=== PATIENT | male | born 1940 | race Caucasian/White ===

== ENCOUNTER 2021-08-25 00:36 | Emergency (ER) | payer BC, MEDICARE | END 2021-08-25 02:19 | disposition home or self-care (01) | LOC: JP.ED 00:36 | DX: R33.9 Retention of urine, unspecified (principal); R14.0 Abdominal distension (gaseous); R10.30 Lower abdominal pain, unspecified | CPT/HCPCS: 51702; 81001; 99282; 99283-25 ==

== ENCOUNTER 2021-10-05 19:29 | Emergency (ER) | payer MEDICARE ==
[2021-10-05 21:00] LABS: ESTIMATED GFR 68 mL/min (>60)
== END 2021-10-05 22:11 | disposition home or self-care (01) ==
LOC: JP.ED 19:29
DX: N39.0 Urinary tract infection, site not specified (principal); R31.9 Hematuria, unspecified; I48.91 Unspecified atrial fibrillation; E78.00 Pure hypercholesterolemia, unspecified; I10 Essential (primary) hypertension; E11.9 Type 2 diabetes mellitus without complications; Z86.16 Personal history of COVID-19; Z95.0 Presence of cardiac pacemaker; Z79.01 Long term (current) use of anticoagulants; Z79.899 Other long term (current) drug therapy; Z87.448 Personal history of other diseases of urinary system
CPT/HCPCS: 36415; 80053; 81001; 85027; 87086; 87088; 87186; 99283

== ENCOUNTER 2021-10-20 16:23 | Emergency (ER) | payer MEDICARE ==
[2021-10-20] MEDS ORDERED: Lidocaine 2% Jelly 10 ML Urojet MUCMEM ONE (19:32)
== END 2021-10-20 21:24 | disposition home or self-care (01) ==
LOC: JP.ED 16:23
DX: R31.9 Hematuria, unspecified (principal); I10 Essential (primary) hypertension; E78.00 Pure hypercholesterolemia, unspecified; E11.9 Type 2 diabetes mellitus without complications; E20.9 Hypoparathyroidism, unspecified; Z79.899 Other long term (current) drug therapy
CPT/HCPCS: 51702; 81001; 99284-25

== ENCOUNTER 2021-10-21 14:35 | Emergency (ER) | payer MEDICARE ==
[2021-10-21] MEDS ORDERED: Lidocaine 2% Jelly 10 ML Urojet MUCMEM ONE (15:16)
== END 2021-10-21 16:15 | disposition home or self-care (01) ==
LOC: JP.ED 14:35
DX: N32.0 Bladder-neck obstruction (principal); D64.9 Anemia, unspecified; C67.9 Malignant neoplasm of bladder, unspecified; E11.9 Type 2 diabetes mellitus without complications; Z79.899 Other long term (current) drug therapy; Z79.01 Long term (current) use of anticoagulants; Z79.84 Long term (current) use of oral hypoglycemic drugs
CPT/HCPCS: 36415; 51702; 80048; 85025; 99284-25

== ENCOUNTER 2023-12-06 17:54 | Emergency (ER) | payer MEDICARE | END 2023-12-06 19:40 | disposition home or self-care (01) | LOC: MERGE 17:54 → JP.ED 17:54 | DX: S42.225A 2-part nondisplaced fracture of surgical neck of left humerus, initial encounter for closed fracture (principal); I25.10 Atherosclerotic heart disease of native coronary artery without angina pectoris; E78.00 Pure hypercholesterolemia, unspecified; I25.2 Old myocardial infarction; E03.9 Hypothyroidism, unspecified; Z86.73 Personal history of transient ischemic attack (TIA), and cerebral infarction without residual deficits; Z79.899 Other long term (current) drug therapy; Z79.01 Long term (current) use of anticoagulants; Z79.84 Long term (current) use of oral hypoglycemic drugs; W01.0XXA Fall on same level from slipping, tripping and stumbling without subsequent striking against object, initial encounter | CPT/HCPCS: 73030-26-LT; 73030-LT; 73080-26-LT; 73080-LT; 99284 ==